=== PATIENT | male | born 1970 | race Caucasian/White ===

== ENCOUNTER 2021-09-14 20:41 | Emergency (ER) | payer OTHER ==
[~2021-09-14] VITALS: Ht 185.4 cm; Wt 102.8 kg
[2021-09-14 21:15] VITALS: BP 138/96
--- NOTE | 2021-09-14 21:17 | PHYS DOC ---
Adult General Chief Complaint Chief Complaint: CONSTIPATION HPI HPI Patient is a 50-year-old male who presents with abdominal pain and constipation. States he had a colonoscopy last week as he has risk factors for colon cancer. States he has not had a bowel movement approximately 4 days. Denies any recent other traumas, illnesses, fevers, chest pain, shortness of breath, nausea, vomiting, diarrhea. Denies any blood in the stool. Denies any dysuria or hematuria. States he is eating and drinking normally for him. States he is making urine normal for him. Review of Systems Review of Systems Review of systems otherwise unremarkable except noted in his HPI Allergies Allergies Allergies Coded Allergies Type Severity Reaction Last Updated Verified No Known Drug Allergies 09/14/21 No Physical Exam Physical Exam Constitutional: Well developed, well nourished, no acute distress, non-toxic appearance. [] HENT: Normocephalic, atraumatic, oropharynx moist, Eyes: conjunctiva normal, no discharge. [] Neck: Normal range of motion, no tenderness, supple, no stridor. [] Cardiovascular:Heart rate regular rhythm, no murmur [] Lungs & Thorax: Bilateral breath sounds clear to auscultation [] Abdomen: soft, no tenderness, no masses, no pulsatile masses. [] Skin: Warm, dry, no erythema, no rash. [] Back: No tenderness, no CVA tenderness. [] Extremities: No tenderness, no cyanosis, no clubbing, ROM intact, no edema. [] Neurologic: Alert and oriented X 3, normal motor function, normal sensory function, able to sit, stand and walk without issue no focal deficits noted. [] Psychologic: Affect normal, judgement normal, mood normal. [] EKG EKG [] Radiology/Procedures Radiology/Procedures [] Heart Score C/O Chest Pain: No Risk Factors: Risk Factors: DM, Current or recent (<one month) smoker, HTN, HLP, family history of CAD, obesity. Risk Scores: Risk Factors: DM, Current or recent (<one month) smoker, HTN, HLP, family history of CAD, obesity. Course & Med Decision Making Course & Med Decision Making Patient is a 50-year-old male who presents with a chief complaint of abdominal pain and constipation Vital signs not concerning. Physical exam noted above. Given IV fluids, pain and nausea medicine Laboratory analysis not concerning other than mild leukocytosis. CT notable for moderate constipation with some mild fat stranding which could be due to nondistention or mild proctitis and possible ileus Started patient on antibiotics in the ED for proctitis. Given dose of magnesium for constipation. Discussed management at home. Advised on diet and fluid over the next couple of days. Advised to follow-up in the morning with primary care physician update on ED visit and set up a follow-up. Gave return precautions to the ED. Patient grateful, verbalized understanding and agreed with plan of discharge. [] Dragon Disclaimer Dragon Disclaimer This electronic medical record was generated, in whole or in part, using a voice recognition dictation system. Departure Departure: Impression: Primary Impression: Constipation Additional Impression: Proctitis Disposition: HOME / SELF CARE / HOMELESS Condition: STABLE Referrals: PCP,UNKNOWN (PCP) HARPER JEREZ MD Patient Instructions: Constipation, Adult, Proctitis Additional Instructions: Thank you for coming into the emergency department tonight and allowing us to take care of you. Please read the attached information carefully to go over things we discussed. Over the next couple of days please eat a light clear diet mostly of liquids including things such as chicken broth, and Gatorade. Please use an [id number] stool softener such as MiraLAX appropriately. Please take your antibiotics as prescribed and until gone. Please also begin a Tylenol, ibuprofen and Benadryl regimen over the next couple of days scheduled every 6-8 hours. Please follow-up first thing in the morning with your primary care physician update on ED visit and set up a follow-up as soon as you can for reevaluation. Please come back with new or concerning symptoms as we discussed. Scripts Amoxicillin/Potassium Clav (AMOX TR-K CLV 875-125 MG TAB) 1 Each Tablet 1 TAB PO BID for colitis for 10 Days, #19 TAB Prov: MATHEW DENT MD 09/14/21 Problem Qualifiers MATHEW DENT MD Sep 14, 2021 21:17
[2021-09-14] MEDS ORDERED: IOHEXOL 300 MG/ML 75 ML VIAL. IV ONE (21:30)
[2021-09-14] MEDS ORDERED: IV RINGERS SOLUTION,LACTATED 1,000 ML IV ONE (21:30)
[2021-09-14 21:59] LABS: BASO % 0 % (0-3); EOS # 0.1 x10^3/uL (0.0-0.7); EOS % 1 % (0-3); HEMATOCRIT 46.4 % (39.0-53.0); HEMOGLOBIN 15.6 g/dL (13.0-17.5); LYMPH # 2.3 x10^3/uL (1.0-4.8); LYMPH % 17 % (24-48); MEAN CORPUSCULAR HEMOGLOBIN 29 pg (25-35); MEAN CORPUSCULAR HGB CONC 34 g/dL (31-37); MEAN CORPUSCULAR VOLUME 88 fL (79-100); MONO # 0.9 x10^3/uL (0.0-1.1); MONO % 7 % (0-9); NEUT # 10.1 x10^3uL (1.8-7.7); NEUT % 75 % (31-73); PLATELET COUNT 210 x10^3/uL (140-400); RED CELL DISTRIBUTION WIDTH 13.6 % (11.5-14.5); WHITE BLOOD COUNT 13.4 x10^3/uL (4.0-11.0)
[2021-09-14 22:09] LABS: CALCIUM 9.4 mg/dL (8.5-10.1); CREATININE 1.1 mg/dL (0.7-1.3); GFR 71.4; POTASSIUM 4.2 mmol/L (3.5-5.1)
[2021-09-14 22:14] LABS: ALBUMIN 3.9 g/dL (3.4-5.0); ALBUMIN/GLOBULIN RATIO 1.1 (1.0-1.7); TOTAL BILIRUBIN 0.5 mg/dL (0.2-1.0); TOTAL PROTEIN 7.3 g/dL (6.4-8.2)
--- NOTE | 2021-09-14 22:33 | RAD ---
Examination: CT of the abdomen pelvis with IV contrast HISTORY: History of abdominal pain status post colonoscopy COMPARISON: None TECHNIQUE: Axial CT images of the abdomen pelvis were performed with IV contrast. Coronal and Sagitta l reformats are performed Exposure: One or more of the following individualized dose reduction techniques were utilized for thi s examination: 1. Automated exposure control 2. Adjustment of the mA and/or kV according to patient size 3. Use of iterative reconstruction technique FINDINGS: The bibasilar lungs are clear. No evidence of free air identified in the abdomen the liver, spleen, r ight adrenal grossly appears unremarkable. There is a 1.6 cm nodule identified in the left adrenal gl and measuring 50 Hounsfield units. The stomach is mildly distended. The visualized pancreas grossly a ppears unremarkable Few fluid distended small bowel loops identified in the mid and lower abdomen. The appendix is not we ll-visualized. Feces and gas noted in the colon. Moderate amount of feces identified in the sigmoid c olon and rectum. Mild fat stranding identified about the rectum. Urinary bladder is mildly distended. The bilateral kidneys enhance symmetrically. Mild degenerative changes lumbar spine. IMPRESSION: 1. Moderate amount of feces identified in the sigmoid colon and rectum. Mild fat stranding identifie d about the rectum could be due to nondistention or mild proctitis. 2. Few fluid distended small bowel loops identified in the mid and lower abdomen, nonspecific could be mild ileus. 3. 1.6 cm nodule identified in the left adrenal gland measuring 50 Hounsfield units. Follow-up nonem ergent adrenal CT or MRI can be considered. Electronically signed by: Chris Heath MD (09/14/2021 10:30 PM) [id number]
[2021-09-14] MEDS ORDERED: AMOX1TAB11 PO (22:47)
[2021-09-14] MEDS ORDERED: AMOXICILLIN/K CLAV 875/125MG TABLET. PO ONE (23:30)
[2021-09-14] MEDS ORDERED: MAGNESIUM CITRATE 296 ML SOLUTION. PO ONE (23:30)
== END 2021-09-14 23:24 | disposition home or self-care (01) ==
LOC: ER 20:41
DX: K62.89 Other specified diseases of anus and rectum (principal); K59.00 Constipation, unspecified
CPT/HCPCS: 36415; 74177; 80053; 83690; 85025; 96361; 96374; 99285; J3010; J7120; Q9967